=== PATIENT | male | born 1980 | race Caucasian/White ===

== ENCOUNTER → 2023-01-01 10:17 | Outpatient (BNVA) | payer BC, SELFPAY | PROVIDERS: Visit Provider Nurse Practitioner | DX: R05.9 Cough, unspecified (principal) | CPT/HCPCS: 87426 ==

== ENCOUNTER → 2024-04-15 14:09 | Outpatient (BNVA) | payer BC, SELFPAY | PROVIDERS: PCP Nurse Practitioner Family; Visit Provider Orthopaedic Surgery | DX: M54.50 Low back pain, unspecified (principal); M54.9 Dorsalgia, unspecified | CPT/HCPCS: 72110 ==

== ENCOUNTER 2024-05-04 07:30 | Outpatient (CLI) | payer BC, SELFPAY ==
--- NOTE | 2024-05-04 07:45 | MR_ITS ---
WS: [id number] MRI LUMBAR SPINE NONCONTRAST TECHNIQUE: Sagittal T1, T2 and STIR imaging. Axial T1 and T2 imaging. CLINICAL INFORMATION: Back pain COMPARISON: None. FINDINGS: Mild lumbar curve. No acute compression. RIGHT subarticular disc protrusion L5-S1 impinges the reny sing RIGHT S1 nerve root. Recommend correlation RIGHT S1 nerve root symptoms. L1-L2: Mild facet arthropathy. Spinal canal and foramen are patent. L2-L3: Slight narrowing of the LEFT subarticular recess. Mild facet arthropathy. Spinal canal and for amen are patent. L3-L4: Mild annular bulging. Slight effacement of the ventral thecal sac. Narrowing of the LEFT great er than RIGHT subarticular recess. Mild LEFT and no significant RIGHT foraminal narrowing. L4-L5: Mild annular bulging. Slight impingement on the RIGHT greater than LEFT subarticular recess an d traversing L5 nerve roots. Mild LEFT foraminal narrowing. Mild facet arthropathy. L5-S1: RIGHT subarticular disc protrusion impinges the RIGHT S1 nerve root. Mild facet arthropathy. M ild LEFT foraminal narrowing. Visualized pelvic bony structures: Normal. Paravertebral soft tissues: Normal. MR/MR lumbar spine wo con* [id number] IMPRESSION: 1. Prominent RIGHT subarticular disc protrusion L5-S1 impinges the traversing S1 nerve root in the subarticular recess. Recommend correlation RIGHT S1 nerve root symptoms. 2. Annular bulging L4-5 slightly impinges the traversing L5 nerve roots bilate rally. 3. Mild annular bulging L3-4 with slight impingement on the traversing LEFT L4 nerve root. Mild LEFT foraminal narrowing. 4. Mild facet arthropathy L3-L5.
== END 2024-05-04 07:31 | disposition home or self-care (01) ==
LOC: RAD 07:31
PROVIDERS: PCP Nurse Practitioner Family; Visit Provider Orthopaedic Surgery
DX: M51.360 Other intervertebral disc degeneration, lumbar region with discogenic back pain only (principal); M51.27 Other intervertebral disc displacement, lumbosacral region; M48.061 Spinal stenosis, lumbar region without neurogenic claudication; M47.816 Spondylosis without myelopathy or radiculopathy, lumbar region; M43.9 Deforming dorsopathy, unspecified
CPT/HCPCS: 72148